=== PATIENT | male | born 1975 | race Caucasian/White ===

== ENCOUNTER 2017-11-08 12:05 | Emergency (ER) | payer SELFPAY | END 2017-11-08 15:09 | disposition left against medical advice (07) | LOC: ER 14:16 | DX: T14.8XXD Other injury of unspecified body region, subsequent encounter (principal); X58.XXXD Exposure to other specified factors, subsequent encounter; Z53.21 Procedure and treatment not carried out due to patient leaving prior to being seen by health care provider ==